=== PATIENT | male | born 1950 | race African-American/Black ===

== ENCOUNTER 2017-01-14 16:26 | Emergency (ER) | payer OTHER ==
[2017-01-14] MEDS ORDERED: IBUPROFEN 400 MG TABLET (FP) PO ONE ×2 (16:49→17:18)
--- NOTE | 2017-01-14 16:55 | PDOC ---
History of Present Illness - General History Source: Patient Exam Limitations: No Limitations - History of Present Illness Initial Comments: 01/14/17 16:50 <Jordan Abarca - Last Filed: 01/14/17 20:30> - General History Source: Patient Exam Limitations: No Limitations - History of Present Illness Initial Comments: 01/14/17 20:47 The patient is a 66 year old male with a significant past medical history of HTN, diabetes s/p pacemaker who presents to the ED with complaints of fall for one day. Patient reports he tripped on the curb of a sidewalk yesterday and landed on his hand and feet. Denies head injury or LOC. He states he developed left sided foot pain later that night and comes into the ED today, via EMS, because the pain is not resolving. Patient reports a recent workup at [facility] 2 days ago and was diagnosed with abdominal CA and will follow up with PMD. He reports sewling in his L hand receiving IV inflitration. He states his left foot is more swollen than right secondary to fall. Denies fever or chills. Denies chest pain or SOB. Denies abdominal pain, nausea, vomiting, or diarrhea. Denies any other symptoms. <Jaimie Ward - Last Filed: 01/14/17 20:47> - General Chief Complaint: Edema Stated Complaint: SWELLING TO HANDS AND FEET Time Seen by Provider: 01/14/17 16:33 Past History <Jordan Abarca - Last Filed: 01/14/17 20:30> <Jaimie Ward - Last Filed: 01/14/17 20:47> - Past Medical History Allergies/Adverse Reactions: Allergies Allergy/AdvReac Type Severity Reaction Status Date / Time No Known Allergies Allergy Verified 01/14/17 16:33 Home Medications: Ambulatory Orders Acetaminophen [Mapap] 500 mg PO QID PRN 01/14/17 Allopurinol 300 mg PO DAILY 01/14/17 Amlodipine Besylate [Norvasc -] 10 mg PO DAILY 01/14/17 Aripiprazole [Abilify] 5 mg PO DAILY 01/14/17 Aspirin [ASA -] 81 mg PO DAILY 01/14/17 Brimonidine Tartrate/Timolol [Combigan 0.2%-0.5% Eye Drops] 1 drop OU BID Clopidogrel Bisulfate [Plavix -] 75 mg PO DAILY 01/14/17 Folic Acid 1 mg PO DAILY 01/14/17 Furosemide [Lasix] 40 mg PO DAILY 01/14/17 Hydralazine HCl [Apresoline -] 25 mg PO TID 01/14/17 Insulin (Levemir) [Levemir Vial] 15 units SCJ HS 01/14/17 Insulin Lispro [Humalog] 6 units SCJ TID 01/14/17 Metoprolol Tartrate 25 mg PO BID 01/14/17 Pantoprazole Sodium [Protonix] 40 mg PO DAILY 01/14/17 Prednisone 5 mg PO DAILY 01/14/17 Simethicone 80 mg PO DAILY 01/14/17 Simvastatin [Zocor] 20 mg PO DAILY 01/14/17 Thiamine Mononitrate [Vitamin B-1] 100 mg PO DAILY 01/14/17 Review of Systems - Review of Systems Able to Perform ROS?: Yes Comments:: 01/14/17 20:47 CONSTITUTIONAL: No reported: Fever, Chills, Diaphoresis, Generalized Weakness, Malaise, Loss of Appetite HEENT: No reported: Rhinorrhea, Nasal Congestion, Throat Pain, Throat Swelling, Difficulty Swallowing, Mouth Swelling, Ear Pain, Eye Pain, Visual Changes CARDIOVASCULAR: No reported: Chest Pain, Syncope, Palpitations, Irregular Heart Rate, Lightheadedness, Peripheral Edema RESPIRATORY: No reported: Cough, Shortness of Breath, SOB with Exertion, Orthopnea, Wheezing , Stridor, Hemoptysis GASTROINTESTINAL: No reported: Abdominal pain, Abdominal Distension, Nausea, Vomiting, Diarrhea, Constipation, Melena, Hematochezia GENITOURINARY: No reported: Dysuria, Frequency, Urgency, Hesitancy, Flank Pain, Genital Pain MUSCULOSKELETAL: + foot pain, extremity swelling. No reported: Back pain, Neck Pain SKIN: No reported: Rash, Itching, Pallor HEMEATOLOGIC/IMMUNOLOGIC: No reported: Easy Bleeding, Easy Bruising, Lymphadenopathy, Frequent infections ENDOCRINE: No reported: Unexplained Weight Gain, Unexplained Weight Loss, Heat Intolerance , Cold Intolerance NEUROLOGIC: No reported: Headache, Focal Weakness, Paresthesias, Vertigo, Lightheadedness, Unsteady Gait, Seizure, Mental Status Changes, Incontinence PSYCHIATRIC: No reported: Anxiety, Depression All Other Systems: Reviewed and Negative <Jaimie Ward Last Filed: 01/14/17 20:47> *Physical Exam - Vital Signs Last Vital Signs Temp Pulse Resp BP Pulse Ox 99.6 F 88 18 119/70 99 01/14/17 16:46 01/14/17 16:46 01/14/17 16:46 01/14/17 16:46 01/14/17 19:05 - Physical Exam Comments: 01/14/17 20:47 GENERAL: The patient is awake, alert, and fully oriented, Nontoxic - in no acute distress. HEAD: Normocephalic, atraumatic. EYES: extraocular movements intact, sclera anicteric, conjunctiva clear. ENT: Normal voice, Moist mucous membranes. NECK: Normal range of motion, supple LUNGS: Breath sounds equal, clear to auscultation bilaterally. No wheezes, no rhonchi, no rales. HEART: Regular rate and rhythm, normal S1 and S2 without murmur, rub or gallop. ABDOMEN: Soft, nontender, normoactive bowel sounds. No guarding, no rebound. . No CVA tenderness EXTREMITIES: edema without any tenderness to L hand without erythema, wamrth (s/ p IV infiltration), b/l +1 edema b/l in LE b/l, no calf tenderness, neg homans sign, mild diffuse dorsal L foot pain without focalit, no pain at lateral 5th metatarsal, no ankle tenderness, normal ROM of hips/knees/ankles. NEUROLOGICAL: No facial assymetry, Normal speech, moving all 4 extremities spontaneously and symmetrically PSYCH: Normal mood, normal affect. SKIN: Warm, Dry, normal turgor, <Jaimie Ward - Last Filed: 01/14/17 20:47> ED Treatment Course - RADIOLOGY Radiology Studies Ordered: Category Date Time Status ANKLE & FOOT-LEFT* [RAD] Stat Radiology 01/14/17 16:49 Ordered <Jordan Abarca - Last Filed: 01/14/17 20:30> - Medications Given in the ED: ED Medications Discontinued Medications Generic Name Dose Route Start Last Admin Trade Name Freq PRN Reason Stop Dose Admin Ibuprofen 400 mg 01/14/17 16:49 01/14/17 17:21 Motrin - PO 01/14/17 16:50 400 mg ONCE ONE Administration <Jaimie Ward - Last Filed: 01/14/17 20:47> Medical Decision Making - Medical Decision Making 01/14/17 16:50 66y M hx of DM, HTN, colon ca, presenst with complaint of L foot pain. The patient states he was walking last night and tripped on a curb, denies any head injury, loc, neck pain,b ack pain. states he fell on his LLE and broke his fall with his hand. He was feeling fine yesterday but woke up with pain in his L foot. The pt denies any preceeding cp, sob, palpitations, dizziness, abd pain, n /v or any other symptoms. Pt notes he was at an outside hospital (he does not wremember which one) and was evaluated for abd pain with a CT and dx with some kind of CA, he also notes that after he got an IV, his L hand swelled (sounds like pt is describing an infilration). on exam th pt has minimal L foot tenderness will give motrin and obtain an xray will obtain ekg to r/o cardiac cause for his fall PMD at [facility] A portion of this note was documented by scribe services under my direction. I have reviewed the details of the note, within reason, and agree with the documentation with the following case summary and management plan written by me 01/14/17 17:54 discussed with [facility] - the pt was evaluated on 01/07/17 in Ed, and DC 01/11/17 evaluated and admitted for abodminal pain CT abd: irregular mass in abdomen, likely colon CA and was dc to fu with doctor Labs: Cr 3.6, BUN 27 --> Cr 2.2, BUN 14 01/14/17 20:29 xray appears negative for fracture on reasessment, no tenderness will d/c with PMD fu return precautions were dsicussed I discussed the physical exam findings, ancillary test results and final diagnoses with the patient. I answered all of the patient's questions. The patient was satisfied with the care received and felt comfortable with the discharge plan and treatment plan. The patient will call their primary care physician within 24 hours to arrange follow-up and will return to the Emergency Department with any new, persistent or worsening symptoms. <Jordan Abarca - Last Filed: 01/14/17 20:30> *DC/Admit/Observation/Transfer - Discharge Dispostion Admit: No <Jordan Abarca - Last Filed: 01/14/17 20:30> - Attestations Scribe Attestion: 01/14/17 20:47 Documentation prepared by Jaimie Ward, acting as veterinary medical officer for Jordan Abarca MD <Jaimie Ward - Last Filed: 01/14/17 20:47> Diagnosis at time of Disposition: Foot pain, left - Discharge Dispostion Disposition: HOME Condition at time of disposition: Improved - Referrals Referrals: Julio C Murrieta [Primary Care Provider] - - Patient Instructions Printed Discharge Instructions: DI for Foot Pain Additional Instructions: Return to the emergency department immediately with ANY new, persistent or worsening symptoms. Take tylenol as needed for pain. You MUST call and follow up with your doctor tomorrow for further evaluation of your symptoms. Results were discussed with you. Please make sure your doctor reviews the results of your emergency evaluation. If you had any xrays during your visit, it was read preliminarily by myself, a Radiologist will review it and if there are any additional findings we will call you. Print Language: BURMESE
[2017-01-14 17:04] VITALS: BMI 26.6
[2017-01-14 23:01] VITALS: BP 116/78; PULSE 79; TEMP 98.4
--- NOTE | 2017-01-15 11:25 | EKG ---
Test Reason : Blood Pressure : / mmHG Vent. Rate : 087 BPM Atrial Rate : 087 BPM P-R Int : 190 ms QRS Dur : 086 ms QT Int : 392 ms P-R-T Axes : 033 -26 028 degrees QTc Int : 471 ms NORMAL SINUS RHYTHM LOW VOLTAGE QRS CANNOT RULE OUT ANTERIOR INFARCT , AGE UNDETERMINED ABNORMAL ECG NO PREVIOUS ECGS AVAILABLE Confirmed by DIEGO ROWELL MD ([id number]) on 01/15/2017 11:25:24 AM Referred By: Confirmed By:DIEGO ROWELL MD
== END 2017-01-14 23:01 | disposition home or self-care (01) ==
LOC: JER 16:26
DX: M79.672 Pain in left foot (principal); W10.1XXA Fall (on)(from) sidewalk curb, initial encounter; Y93.89 Activity, other specified; Y92.480 Sidewalk as the place of occurrence of the external cause; T80.89XA Other complications following infusion, transfusion and therapeutic injection, initial encounter; I10 Essential (primary) hypertension; E11.9 Type 2 diabetes mellitus without complications; Z79.4 Long term (current) use of insulin; C18.9 Malignant neoplasm of colon, unspecified
CPT/HCPCS: 73610-TC-LT; 73630-TC-LT; 93005; 93010; 99282-25